=== PATIENT | female | born 1955 | race Native Hawaiian/Other Pacific Islander ===

== ENCOUNTER 2017-06-11 17:15 | Emergency (ER) | payer OTHER ==
[~2017-06-11] VITALS: Ht 165.1 cm; Wt 68.5 kg
[2017-06-11 20:10] VITALS: BP 142/77; TEMP 98.7
== END 2017-06-11 20:12 | disposition home or self-care (01) ==
LOC: ED 17:15
DX: R11.0 Nausea (principal)
CPT/HCPCS: 96372; 99283; J2405

== ENCOUNTER 2017-08-05 07:32 | Day surgery (SDC) | payer OTHER | END 2017-08-05 09:55 | disposition home or self-care (01) | LOC: OR 07:32 | PROC: 08RK3JZ Replacement of Left Lens with Synthetic Substitute, Percutaneous Approach (ICD-10-PCS; principal; 2017-08-05) | DX: H25.812 Combined forms of age-related cataract, left eye (principal) | CPT/HCPCS: 66984; V2632 ==